=== PATIENT | male | born 1945 | race Caucasian/White ===

== ENCOUNTER 2021-06-02 09:57 | Outpatient (CLI) | payer MEDICARE, SELFPAY ==
--- NOTE | 2021-06-02 10:30 | DI.RAD_ITS ---
Exam(s) XR PAIN CLINIC LUMBAR SP 2V EXAM: XR PAIN CLINIC LUMBAR SP 2V CLINICAL HISTORY: Dx: Lumbar Radiculopathy TECHNIQUE: 2D and realtime digital imaging was performed. COMPARISON: No exams were available for comparison FINDINGS: C-arm fluoroscopy was utilized by Dr. Rodriguez. Please see Dr. Caba procedure note. Hard copies show n eedles positioned over approximately L5 S1 and S1 S2 levels on the right. IMPRESSION: RADIATION DOSE DELIVERED: ayaka Suarez=62.74 mGy
[2021-06-02 10:48] VITALS: BP 141/62; PULSE 77; RESP 18; TEMP 37; O2SAT 98
[2021-06-02] MEDS: Omnipaque 240 MG/ML 50 ML BTL IJ (11:17)
[2021-06-02] MEDS: Dexamethasone Sod. Phos./Pres-Free 10 MG/ML VIAL IJ (11:17)
--- NOTE | 2021-06-02 11:24 | PDOC.PAIN_ITS ---
Pain Clinic Procedure Note Procedure Note Procedure Note: LUMBAR / SACRAL TRANSFORAMINAL INJECTION at the right L5 and right S1 levels MICHELLE SOUTH has been referred to the [facility] for a transforaminal nerve root block and steroid injection. COMMENTS: I evaluated him in the office on 04/14/21. His pre-procedure pain VAS is 7/10. Dx: Lumbosacral radiculopathy Patient was interviewed and the medical record reviewed. There were no medical, pharmacologic, radiographic or other structural contraindications to attempting fluoroscopically guided transforaminal nerve root block and epidural steroid injection. Risks and expected side effects as well as potential benefit of the procedure were reviewed and voiced concerns addressed. The printed consent form was signed and witnessed. Standard time-out procedure was performed. Patient was placed in the prone position on the fluoroscopy table and automated blood pressure cuff and pulse oximeter applied. Fluoroscopy was utilized to identify the right L5 neural foramen between L5 and S1 as well as through the right S1 neuroforamen. A skin dorian was made for the needle insertion site. A Chlorhexadine prep was carried out, and sterile drapes were applied. Local anesthesia was achieved in the skin and subcutaneous tissues. A 22 gauge curved tip spinal needle was then inserted, advanced with fluoroscopic guidance into the neural foramen, confirmed on the lateral view. After negative aspiration, 2 ml of Omnipaque 240 was injected confirming position in A/P and lateral views. This showed a good spread of dye transforaminally into the epidural space. The re was no vascular update with contrast injection under continuous fluoroscopy and digital substraction. 7.5 mg of Dexamethasone was injected around each nerve root, followed by 0.5 ml of 1% Xylocaine flush for the nerve root block, as well. There was no unusual discomfort expressed.The needle was withdrawn. The patient tolerated the procedure well. A Band-Aid was applied. Vital signs were stable throughout the procedure and were as recorded in nursing records. If given, dosages of intravenous drugs for anxiolysis and analgesia were documented in nursing records. Follow up plans and appointments were discussed. Post procedure instruction was given as documented in nursing records and patient was discharged in the care of an identified furniture delivery driver. COMMENTS:His post-procedure pain VAS was 0/10 to the right leg. If he gets assistant terminal manager relief of the leg pain, that would indicate that the likely culprit of the nerve impingement is disc. If not, he likely have bone causing the nerve impingement. He understands. If he gets sustained pain relief, this procedure can be completed up to 3 times per 12 months. Fabricio Rodriguez DO, MPH [facility]-Pain Management [facility] CC: Ric Velásquez
[2021-06-02 11:31] VITALS: BP 162/74; PULSE 78; RESP 18; O2SAT 96
== END 2021-06-02 09:58 | disposition home or self-care (01) ==
LOC: PC 10:02
PROVIDERS: PCP Family Medicine; Visit Provider Preventive Medicine Occupational Medicine
DX: M54.17 Radiculopathy, lumbosacral region (principal)
CPT/HCPCS: 64483; 72100; Q9967

== ENCOUNTER 2021-06-23 09:50 | Outpatient (CLI) | payer OTHER, SELFPAY ==
--- NOTE | 2021-06-23 06:00 | DI.RAD_ITS ---
Exam(s) XR PAIN CLINIC LUMBAR SP 2V EXAM: XR PAIN CLINIC LUMBAR SP 2V CLINICAL HISTORY: Dx: Lumbar Spondylosis TECHNIQUE: 2D and realtime digital imaging was performed. COMPARISON: No exams were available for comparison FINDINGS: C-arm fluoroscopy was utilized by Dr. Rodriguez during reported right medial branch block. Hard copies sh ow needle placement on the right at what appear to be the L4-5 and L5-S1 levels. IMPRESSION: RADIATION DOSE DELIVERED: ayaka Suarez 19.76 mGy
[2021-06-23 10:04] VITALS: BP 148/82; PULSE 74; RESP 20; TEMP 36.6; O2SAT 95
--- NOTE | 2021-06-23 10:49 | PDOC.PAIN ---
Pain Clinic Procedure Note Procedure Note Procedure Note: Lumbar/Sacral Medial Branch Blocks MICHELLE SOUTH has been referred to the Pain Management Center for lumbar/sacral medial branch blocks. COMMENTS: I previously evaluated him in the clinic. His pain is only on the right side of the low back and thus we will only do this procedure on the right side. His pre-procedure pain VAS is 7/10. Dx: Lumbosacral spondylosis without myelopathy Patient was interviewed and the medical record reviewed. There were no medical, pharmacologic, radiographic or other structural contraindications to attempting fluoroscopically guided local anesthetic lumbar/sacral medial branch blocks. Risks and expected side effects as well as potential benefit of the procedure were reviewed and voiced concerns addressed. The printed consent form was signed and witnessed. Standard time-out procedure was performed. Patient was placed in the prone position on the fluoroscopy table and automated blood pressure cuff and pulse oximeter applied. The skin entry points for approaching the anatomic target points of the segmental medial branches of right L3-L5 were identified with anfluoroscopy and marked. Following thorough Chlorhexadine preparation of the skin and draping and 1% lidocaine infiltration of the skin entry points and subcutaneous tissues, a 22 gauge spinal needle was placed under fluoroscopic guidance down on to the target point for each respective segmental medial branch.Position was confirmed in A/P, oblique and lateral views with 0.25ml of omnipaque 240. At this point 0.5ml of 0.5% Bupivacaine was injected at each segmental sensory nerve. Vital signs were stable throughout the procedure and were as recorded in the docflowsheet by the nursing staff. Follow up plans and appointments were discussed and was instructed to keep careful note of how the usual pain was modified by these injections. Specifically was asked to keep a pain diary for the next 4 hours using a numeric pain scale of 0-10 and report these results at the follow-up visit. Post procedure instruction was given as documented in the nursing documentation and having met discharge criteria. Patient was discharged from the Pain Management Center. Based on the medial branches blocked today, if the patient has adequate relief and we are able to proceed to radiofrequency ablation, the treatment should result in the denervation of the right L4-L5 and right L5-S1 FACET JOINTS. We would expect to denervate a total of 2 facets during the radiofrequency ablation. COMMENTS: Post-procedure pain VAS was 1/10. Fabricio Rodriguez DO, MPH [facility] [place] CC: Ric Velásquez
[2021-06-23 11:02] VITALS: BP 156/90; PULSE 72; RESP 23; O2SAT 97
[2021-06-23] MEDS: Omnipaque 240 MG/ML 50 ML BTL IJ (11:02)
[2021-06-23] MEDS: Bupivacaine 0.5% Pres-Free 10 ML VIAL IJ (11:02)
== END 2021-06-23 09:51 | disposition home or self-care (01) ==
LOC: PC 09:53
PROVIDERS: PCP Family Medicine; Visit Provider Preventive Medicine Occupational Medicine
DX: M47.817 Spondylosis without myelopathy or radiculopathy, lumbosacral region (principal)
CPT/HCPCS: 64493; 64494; 72100; Q9967

== ENCOUNTER → 2022-02-17 02:10 | Outpatient (CLI) | payer OTHER, SELFPAY ==
--- NOTE | 2022-02-17 11:16 | DI.RAD_ITS ---
Exam(s) XR HIP RT AP LAT ONLY EXAM: XR HIP RT AP LAT ONLY CLINICAL HISTORY: acute right hip pain, ? avascular necrosis vs OA, m25.551. TECHNIQUE: 2D digital imaging was performed of the right hip. Two images were obtained. AP and late ral hip views were obtained. COMPARISON: No exams were available for comparison FINDINGS: BONES: No acute fracture is present. No bony destructive lesion is seen. JOINTS: No dislocation present. There are mild degenerative changes of the right hip with acetabular prominence and joint space narrowing. No findings radiographically are seen to suggest avascular nec rosis. SOFT TISSUE: Vascular calcifications are present. IMPRESSION: Mild degenerative changes of the right hip. DATA REPOSITORY: RADIATION DOSE DELIVERED:
--- NOTE | 2022-02-17 11:16 | DI.RAD_ITS ---
Exam(s) XR LUMBAR SPINE AP, LAT EXAM: XR LUMBAR SPINE AP, LAT CLINICAL HISTORY: recent fall, worsening back pain, ? comp fx,m54.16, radiculopathy. TECHNIQUE: 2D digital imaging was performed of the lumbar spine. Four images were obtained. AP, la teral and L5-S1 spot views were obtained. COMPARISON: None. FINDINGS: BONES: No fracture or destructive lesion. There are endplate osteophytes throughout the lumbar spine. Degenerative changes of the facets are seen in the lower lumbar spine. DISKS: There is mild narrowing of the L4-5 disc space. ALIGNMENT: Lumbar spinal alignment is within normal limits. No spondylolysis or spondylolisthesis. SOFT TISSUE: Normal. IMPRESSION: No acute fracture or subluxation. Degenerative changes in the spine. DATA REPOSITORY: RADIATION DOSE DELIVERED:
== END ==
PROVIDERS: PCP Family Medicine; Visit Provider Internal Medicine
DX: M16.11 Unilateral primary osteoarthritis, right hip (principal); M54.16 Radiculopathy, lumbar region; M47.816 Spondylosis without myelopathy or radiculopathy, lumbar region
CPT/HCPCS: 72100; 73502

== ENCOUNTER 2022-02-23 14:04 | Outpatient (CLI) | payer OTHER, SELFPAY ==
[2022-02-23 14:30] VITALS: BP 143/70; PULSE 64; RESP 20; TEMP 36.5; O2SAT 98
--- NOTE | 2022-02-23 15:15 | DI.RAD_ITS ---
Exam(s) XR PAIN CLINIC LUMBAR SP 2V EXAM: XR PAIN CLINIC LUMBAR SP 2V CLINICAL HISTORY: Dx: Lumbar Radiculopathy TECHNIQUE: 2D and realtime digital imaging was performed. Radiologist not present. CONTRAST MATERIAL: None. COMPARISON: No exams were available for comparison FINDINGS: Fluoroscopy was provided for pain management therapy. Please refer to procedure report or details. Cumulative dose: Ka,r=36.79 mGy IMPRESSION: RADIATION DOSE DELIVERED:
[2022-02-23] MEDS: methylPREDNISolone ACETATE 40 MG/ML VIAL (15:17)
[2022-02-23] MEDS: Omnipaque 240 MG/ML 50 ML BTL IJ (15:18)
[2022-02-23 15:27] VITALS: BP 155/73; PULSE 69; RESP 22; O2SAT 97
--- NOTE | 2022-02-23 16:04 | PDOC.PAIN_ITS ---
Date of service: 02/23/22 Time of Service: 15:00 Pain Clinic Procedure Note Procedure Note Procedure Note: CAUDAL EPIDURAL STEROID WITH CATHETER INJECTION PROCEDURE NOTE COMMENTS: He previously had good relief with this procedure. He has had lumbar spine surgery in the past, thus the reason for the caudal approach. His pre- procedure pain VAS to the low back and legs was 7/10. Dx: Lumbosacral radiculopathy. Marty Armstrong has been referred to the Pain Management Center for lumbar epidural steroid injection. Patient was greeted by the nurse who verified the patient?s name and .? Patient was then taken to the fluoroscopy suite. The patient was interviewed and the medical record was reviewed.? There were no medical, pharmacologic, radiographic, or other structural contraindications to attempting fluoroscopically guided caudal epidural steroid injection. Risks and expected side effects as well as potential benefits of the procedure were reviewed and voiced concerns addressed.? The patient consent form was signed.? Standard time-out procedure was performed. The patient was placed in the prone position on the fluoroscopy table and automated blood pressure cuff, pulse oximeter, and 3 lead EKG was applied.? The skin entry point for entering/approaching the sacral hiatus was marked.? Following thorough chlorhexadine preparation of the skin and draping and 1% lidocaine infiltration of the skin entry point and subcutaneous tissues, a 17 gauge Touhy needle was placed under fluoroscopic guidance through the sacral hiatus.? Needle tip placement and depth were aided and confirmed by fluoroscopy. There was no paresthesia or return of blood or CSF through the needle. A 19G Arrow spinal catheter was threaded to the [] height and 1 cc's of Omnipaque 240 was injected with clear epidural spread confirmed with fluoroscopy.? Aspiration was performed with no resulting blood or clear fluid. One cc of depomedrol (40 mg/cc) was injected.? This was followed by 2 cc of 1% Lidocaine to flush the catheter.?There was not any unusual discomfort expressed.? The needle and catheter were removed together without difficulty. Vital signs were stable throughout the procedure and were as recorded in nursing records.? Follow up plans and appointments were discussed.? Post procedure instruction was given as documented in nursing records and having met discharge criteria and was discharged from the Pain Management Center. Fabricio Rodriguez DO, MPH [facility]-Pain Management [facility]-[place] [facility]
== END 2022-02-23 14:05 | disposition home or self-care (01) ==
LOC: PC 14:04
PROVIDERS: PCP Family Medicine; Visit Provider Preventive Medicine Occupational Medicine
DX: M54.17 Radiculopathy, lumbosacral region (principal); M54.50 Low back pain, unspecified
CPT/HCPCS: 62323; 72100; J1030; Q9967